=== PATIENT | female | born 1970 ===

== ENCOUNTER 2018-07-02 12:59 | Outpatient (CLI) | payer OTHER | END 2018-07-02 13:23 | disposition home or self-care (01) | LOC: LAB 12:59 | DX: Z11.3 Encounter for screening for infections with a predominantly sexual mode of transmission (principal); N39.0 Urinary tract infection, site not specified ==

== ENCOUNTER → 2019-05-07 11:44 | Outpatient (CLI) | payer OTHER | END | disposition home or self-care (01) | LOC: LAB 11:44 | DX: N30.00 Acute cystitis without hematuria (principal); E03.8 Other specified hypothyroidism; E55.9 Vitamin D deficiency, unspecified; E78.00 Pure hypercholesterolemia, unspecified ==